=== PATIENT | female | born 1950 | race Two or more races ===

== ENCOUNTER 2019-11-26 06:00 | Day surgery (SDC) | payer OTHER ==
[~2019-11-26 06:00] MED LIST: ALENDRONATE SOD70 MG PO; ATACAND HCT 321 EACH PO; ATORVASTATIN CA20 MG PO; FAMOTID PO; LEVO-T50 MCG PO; MAXIMUM DAILY1 EACH PO; PANTOPRAZOLE SO40 MG PO; [UNRECOGNIZED DRUG - OTHER] PO
== END 2019-11-26 17:45 | disposition home or self-care (01) ==
LOC: CIR.AMB 06:00
PROVIDERS: ATTEND Colon & Rectal Surgery
DX: K60.3 Anal fistula (principal)